=== PATIENT | male | born 1950 | race African-American/Black ===

== ENCOUNTER 2019-10-20 16:10 | Inpatient (IN) | payer MEDICARE, BC ==
[~2019-10-20] VITALS: Ht 182.9 cm; Wt 54.4 kg
[~2019-10-20 16:10] MED LIST: CARB1TAB11 MT; CLON0.1T PO; FERR325T6 MT; LISI-186 MT; POTA20TA82 MT; QUET25TA MT; RASA0.5T PO
[2019-10-20] MEDS ORDERED: SODIUM CHLORIDE 0.9% 1,000 ML IV ONE (17:04)
[2019-10-20] MEDS ORDERED: MAGNESIUM CITRATE 300ML SOLUTION PO ONE (17:15)
[2019-10-20] MEDS ORDERED: LACTULOSE 20G/30ML UDC PO ONE (17:15)
[2019-10-20] MEDS ORDERED: SODIUM POLYSTYRENE SULFONATE 15 G/60 ML BOT PO ONE (17:15)
[2019-10-20 17:56] LABS: HEMATOCRIT. 29.6 % (42.0-52.0); HEMOGLOBIN. 9.9 g/dL (14.0-18.0); MEAN CORPUSCULAR HEMOGLOBIN 29.4 pg (28.0-32.0); MEAN CORPUSCULAR VOLUME 87.6 fL (80.0-94.0); PLATELET 290 x1000/uL (130-400); RED BLOOD CELL COUNT 3.38 mill/uL (4.7-6.1); RED CELL DISTRIBUTION WIDTH 17.3 % (11.6-14.6)
[2019-10-20 18:01] LABS: CHLORIDE 106 mEq/L (98-107); PROTHROMBIN TIME 10.8 sec (9.6-11.0)
[2019-10-20 18:27] LABS: PLATELET ESTIMATE NORMAL
[2019-10-20 19:29] LABS: CLARITY URINE CLEAR (CLEAR); COLOR URINE YELLOW (YELLOW); KETONES URINE NEGATIVE (NEGATIVE); LEUKOCYTE ESTERASE URINE NEGATIVE (NEGATIVE); NITRITE URINE NEGATIVE (NEGATIVE); OCCULT BLOOD URINE TRACE (NEGATIVE); PH URINE 6.5 (4.5-8.0); PROTEIN URINE TRACE (NEGATIVE); SPECIFIC GRAVITY URINE 1.016 (1.005-1.030); UROBILINOGEN URINE 0.2 E.U./dL (0.2-1.0)
[2019-10-20] MEDS ORDERED: LACTULOSE 20G/30ML UDC PO PRN (20:45)
[2019-10-20] MEDS ORDERED: HYDROCODONE/ACETAMINOPHEN 5/325MG TABLET PO PRN (20:45)
[2019-10-20] MEDS ORDERED: ACETAMINOPHEN 650MG/20.3ML UDC GT PRN (20:45)
[2019-10-20] MEDS ORDERED: DOCUSATE SODIUM 100MG CAPSULE PO PRN (20:45)
[2019-10-20] MEDS ORDERED: ONDANSETRON HCL 4MG/2ML INJ IV PRN (20:45)
[2019-10-20] MEDS ORDERED: NA PHOS,M-B/NA PHOS,DI-BA ENEMA 118ML PR PRN (21:00)
[2019-10-20] MEDS: CARBIDOPA/LEVODOPA 25/100MG TABLET PO SCH (22:00)
[2019-10-20 22:33] VITALS: BP 139/89
[2019-10-20 23:00] VITALS: BP 139/89
[2019-10-20] MEDS: PANTOPRAZOLE SODIUM 40 MG/VIAL IV SCH (23:35)
[2019-10-20] MEDS: ENOXAPARIN 40MG/0.4ML SYR SUBCUT SCH (23:36)
[2019-10-21] VITALS (8 sets, daily range): BP systolic 151–177; BP diastolic 77–95
[2019-10-21] MEDS: DEXT 5%/0.45% NACL 1000ML 1,000 ML IV SCH ×3 (02:40→21:53)
[2019-10-21] MEDS: CARBIDOPA/LEVODOPA 25/100MG TABLET PO SCH ×3 (06:00→21:26)
[2019-10-21 07:26] LABS: CHLORIDE 111 mEq/L (98-107)
[2019-10-21 08:38] LABS: HEMATOCRIT. 28.2 % (42.0-52.0); HEMOGLOBIN. 9.5 g/dL (14.0-18.0); MEAN CORPUSCULAR HEMOGLOBIN 29.8 pg (28.0-32.0); MEAN CORPUSCULAR VOLUME 88.1 fL (80.0-94.0); PLATELET 282 x1000/uL (130-400); RED CELL DISTRIBUTION WIDTH 17.3 % (11.6-14.6)
[2019-10-21] MEDS: PANTOPRAZOLE SODIUM 40 MG/VIAL IV SCH (09:18)
[2019-10-21 11:20] LABS: PLATELET ESTIMATE NORMAL
[2019-10-21] MEDS: CLONIDINE 0.1MG TABLET PO PRN ×2 (12:12→21:26)
[2019-10-21] MEDS: BISACODYL 10MG SUPP PR SCH (14:21)
[2019-10-21] MEDS: METOCLOPRAMIDE HCL 10MG/2ML VIAL IV SCH (18:03)
[2019-10-21] MEDS: ENOXAPARIN 40MG/0.4ML SYR SUBCUT SCH (21:26)
[2019-10-22] VITALS: BP 110/71
[2019-10-22] MEDS: METOCLOPRAMIDE HCL 10MG/2ML VIAL IV SCH ×4 (00:29→18:41)
[2019-10-22 04:00] VITALS: BP 164/90
[2019-10-22] MEDS: CLONIDINE 0.1MG TABLET PO PRN (05:40)
[2019-10-22] MEDS: CARBIDOPA/LEVODOPA 25/100MG TABLET PO SCH ×3 (05:41→22:14)
[2019-10-22 06:17] VITALS: BP 146/82
[2019-10-22 08:00] VITALS: BP 119/66
[2019-10-22] MEDS: PANTOPRAZOLE SODIUM 40 MG/VIAL IV SCH (09:22)
[2019-10-22] MEDS: BISACODYL 10MG SUPP PR SCH (09:34)
[2019-10-22] MEDS ORDERED: SORBITOL 70% SOLN 30ML PO NR (11:00)
[2019-10-22 12:00] VITALS: BP 122/57
[2019-10-22 16:00] VITALS: BP 130/60
[2019-10-22] MEDS: ENOXAPARIN 30MG/0.3ML SYR SUBCUT SCH (22:14)
[2019-10-22] MEDS: DEXT 5%/0.45% NACL 1000ML 1,000 ML IV SCH (22:14)
[2019-10-23] VITALS: BP 136/78
[2019-10-23] MEDS: METOCLOPRAMIDE HCL 10MG/2ML VIAL IV SCH ×5 (00:41→23:58)
[2019-10-23 04:00] VITALS: BP 183/101
[2019-10-23] MEDS: CARBIDOPA/LEVODOPA 25/100MG TABLET PO SCH ×3 (05:45→22:25)
[2019-10-23 06:36] LABS: HEMATOCRIT. 31.9 % (42.0-52.0); HEMOGLOBIN. 10.6 g/dL (14.0-18.0); MEAN CORPUSCULAR HEMOGLOBIN 29.2 pg (28.0-32.0); MEAN CORPUSCULAR VOLUME 87.9 fL (80.0-94.0); MEAN PLATELET VOLUME 8.2 fl (7.4-10.4); PLATELET 307 x1000/uL (130-400); RED BLOOD CELL COUNT 3.63 mill/uL (4.7-6.1); RED CELL DISTRIBUTION WIDTH 16.8 % (11.6-14.6)
[2019-10-23 06:53] LABS: CHLORIDE 105 mEq/L (98-107)
[2019-10-23 08:00] VITALS: BP 152/83
[2019-10-23] MEDS: PANTOPRAZOLE SODIUM 40 MG/VIAL IV SCH (08:24)
[2019-10-23] MEDS: BISACODYL 10MG SUPP PR SCH (08:25)
[2019-10-23] MEDS: DEXT 5%/0.45% NACL 1000ML 1,000 ML IV SCH (11:22)
[2019-10-23 12:00] VITALS: BP 110/90
[2019-10-23 13:59] LABS: PLATELET ESTIMATE NORMAL
[2019-10-23 16:00] VITALS: BP 118/74
[2019-10-23] MEDS ORDERED: POTASSIUM CHLORIDE INJ 40 MEQ in DEXT 5% WATER 500 ML IV NR (18:00)
[2019-10-23 20:00] VITALS: BP 139/87
[2019-10-23] MEDS: ENOXAPARIN 30MG/0.3ML SYR SUBCUT SCH (22:25)
[2019-10-24] VITALS: BP 146/84
[2019-10-24 04:00] VITALS: BP_SYST 142
[2019-10-24] MEDS: METOCLOPRAMIDE HCL 10MG/2ML VIAL IV SCH ×3 (05:44→17:58)
[2019-10-24] MEDS: CARBIDOPA/LEVODOPA 25/100MG TABLET PO SCH ×2 (05:44→16:57)
[2019-10-24 08:00] VITALS: BP 144/82
[2019-10-24] MEDS: PANTOPRAZOLE SODIUM 40 MG/VIAL IV SCH (08:21)
[2019-10-24] MEDS ORDERED: THIAMINE HCL 100MG TABLET PO SCH (09:00)
[2019-10-24] MEDS ORDERED: FOLIC ACID 1MG TABLET PO SCH (09:00)
[2019-10-24] MEDS: DEXT 5%/0.45% NACL 1000ML 1,000 ML IV SCH (09:53)
[2019-10-24] MEDS: BISACODYL 10MG SUPP PR SCH (09:55)
[2019-10-24 12:00] VITALS: BP 148/95
[2019-10-24 12:23] VITALS: BP 144/82
[2019-10-24 16:00] VITALS: BP 165/89
[2019-10-24] MEDS: CLONIDINE 0.1MG TABLET PO PRN (16:57)
== END 2019-10-24 20:57 | disposition home or self-care (01) | DRG 394 ==
LOC: EDBD → ER 16:10 → EDBEDREQ 17:08 → 6EST 19:19 → EDBEDREQTM 19:23 → EDBEDREQSVC 19:23 → EDBEDREQ 19:23 → ENRESERV 20:09 → 6EST 22:29 → 7WST 23:41 → 6EST 23:57 → 7WST 23:59
PROVIDERS: ADMIT Hospitalist; ATTEND Hospitalist
DX: K62.89 Other specified diseases of anus and rectum (principal); K56.7 Ileus, unspecified; E44.0 Moderate protein-calorie malnutrition; Z68.1 Body mass index [BMI] 19.9 or less, adult; K56.41 Fecal impaction; D50.9 Iron deficiency anemia, unspecified; E88.09 Other disorders of plasma-protein metabolism, not elsewhere classified; G20 Parkinson's disease; K63.89 Other specified diseases of intestine; I10 Essential (primary) hypertension; R13.10 Dysphagia, unspecified; Z79.899 Other long term (current) drug therapy; Z86.73 Personal history of transient ischemic attack (TIA), and cerebral infarction without residual deficits; Z93.1 Gastrostomy status
CPT/HCPCS: 36415; 71045; 74018; 74176; 80053; 81003; 85025; 92610; 93970; 96365; 96375; 99285; C9113; J1650; J2765; J3480; J7030; J7060; A4315

== ENCOUNTER 2019-10-25 21:04 | Emergency (ER) | payer BC, MEDICARE ==
[~2019-10-25] VITALS: Ht 172.7 cm; Wt 75.0 kg
[2019-10-25] MEDS ORDERED: SODIUM CHLORIDE 0.9% 1,000 ML IV ONE (21:49)
[2019-10-25 22:49] LABS: HEMATOCRIT. 27.5 % (42.0-52.0); HEMOGLOBIN. 9.9 g/dL (14.0-18.0); MEAN CORPUSCULAR HEMOGLOBIN 30.7 pg (28.0-32.0); MEAN CORPUSCULAR VOLUME 85.6 fL (80.0-94.0); MEAN PLATELET VOLUME 7.9 fl (7.4-10.4); PLATELET 263 x1000/uL (130-400); RED BLOOD CELL COUNT 3.21 mill/uL (4.7-6.1); RED CELL DISTRIBUTION WIDTH 16.7 % (11.6-14.6)
[2019-10-25 22:56] LABS: CHLORIDE 104 mEq/L (98-107)
[2019-10-25 23:00] LABS: CLARITY URINE CLEAR (CLEAR); COLOR URINE YELLOW (YELLOW); KETONES URINE NEGATIVE (NEGATIVE); LEUKOCYTE ESTERASE URINE NEGATIVE (NEGATIVE); NITRITE URINE NEGATIVE (NEGATIVE); OCCULT BLOOD URINE 1+ (NEGATIVE); PROTEIN URINE NEGATIVE (NEGATIVE); SPECIFIC GRAVITY URINE 1.013 (1.005-1.030)
[2019-10-25 23:07] LABS: PLATELET ESTIMATE NORMAL
[2019-10-26] MEDS ORDERED: METOPROLOL TARTRATE 25MG TABLET PO ONE (06:45)
[2019-10-26] MEDS ORDERED: LISINOPRIL 5MG TABLET PO ONE (06:45)
[2019-10-26 10:10] VITALS: BP 177/82
[2019-10-27] MEDS ORDERED: BISA10SU62 RC (15:03)
[2019-10-27] MEDS ORDERED: METO-293 MT (15:03)
== END 2019-10-26 10:21 | disposition home or self-care (01) ==
LOC: EDBD → ER 21:04
DX: S30.813A Abrasion of scrotum and testes, initial encounter (principal); R31.9 Hematuria, unspecified; I10 Essential (primary) hypertension; G20 Parkinson's disease; Z86.73 Personal history of transient ischemic attack (TIA), and cerebral infarction without residual deficits; Z79.899 Other long term (current) drug therapy; X58.XXXA Exposure to other specified factors, initial encounter; Y93.89 Activity, other specified; Y92.89 Other specified places as the place of occurrence of the external cause; Y99.8 Other external cause status
CPT/HCPCS: 36415; 80053; 81003; 85025; 99283; J7030

== ENCOUNTER 2019-10-27 06:46 | Inpatient (IN) | payer BC, MEDICARE ==
[~2019-10-27] VITALS: Ht 182.9 cm; Wt 47.9 kg
[2019-10-27] MEDS ORDERED: KETOROLAC 30MG/ML VIAL IV STA (07:05)
[2019-10-27 08:43] LABS: CHLORIDE 106 mEq/L (98-107); INR 1.1; PROTHROMBIN TIME 11.3 sec (9.6-11.0)
[2019-10-27 08:45] LABS: HEMATOCRIT. 32.6 % (42.0-52.0); HEMOGLOBIN. 10.7 g/dL (14.0-18.0); MEAN CORPUSCULAR HEMOGLOBIN 28.5 pg (28.0-32.0); MEAN CORPUSCULAR VOLUME 86.7 fL (80.0-94.0); MEAN PLATELET VOLUME 7.8 fl (7.4-10.4); PLATELET 260 x1000/uL (130-400); RED BLOOD CELL COUNT 3.76 mill/uL (4.7-6.1); RED CELL DISTRIBUTION WIDTH 16.3 % (11.6-14.6)
[2019-10-27] MEDS ORDERED: HYDRALAZINE 20MG/ML VIAL IV ONE (08:45)
[2019-10-27 09:41] LABS: PLATELET ESTIMATE NORMAL
[2019-10-27 09:55] LABS: CLARITY URINE CLEAR (CLEAR); KETONES URINE NEGATIVE (NEGATIVE); LEUKOCYTE ESTERASE URINE NEGATIVE (NEGATIVE); NITRITE URINE NEGATIVE (NEGATIVE); OCCULT BLOOD URINE TRACE (NEGATIVE); PROTEIN URINE NEGATIVE (NEGATIVE); SPECIFIC GRAVITY URINE 1.006 (1.005-1.030)
[2019-10-27 09:57] LABS: COLOR URINE PALE YELLOW (YELLOW)
[2019-10-27] MEDS ORDERED: LEVOFLOXACIN 750MG PREMIX 150 ML IV ONE (11:00)
[2019-10-27] MEDS ORDERED: METRONIDAZOLE 500 MG PREMIX 100 ML IV ONE (11:00)
[2019-10-27] MEDS ORDERED: CLONIDINE 0.1MG TABLET PO PRN (12:15)
[2019-10-27] MEDS ORDERED: ONDANSETRON HCL 4MG/2ML INJ IV PRN (12:15)
[2019-10-27] MEDS ORDERED: HYDROMORPHONE HCL/PF 2MG/ML CPJ IV PRN (12:15)
[2019-10-27] MEDS ORDERED: ACETAMINOPHEN 650MG/20.3ML UDC GT PRN (12:15)
[2019-10-27] MEDS ORDERED: LACTULOSE 20G/30ML UDC PO PRN (12:30)
[2019-10-27] MEDS ORDERED: POTASSIUM CHLORIDE 20MEQ TABLET SR PO NR (12:30)
[2019-10-27] MEDS ORDERED: BISACODYL 10MG SUPP PR PRN (12:30)
[2019-10-27 14:00] VITALS: BP 121/67
[2019-10-27] MEDS ORDERED: METRONIDAZOLE 500 MG PREMIX 100 ML IV SCH (14:00)
[2019-10-27 14:37] VITALS: BP 121/67
[2019-10-27] MEDS ORDERED: BISA10SU62 RC (15:03)
[2019-10-27] MEDS ORDERED: METO-293 MT (15:03)
[2019-10-27] MEDS ORDERED: POTASSIUM CHLORIDE 20MEQ/PACKET GT NR (15:30)
[2019-10-27 16:00] VITALS: BP 136/88
[2019-10-27] MEDS ORDERED: LEVOFLOXACIN 500MG PREMIX 100 ML IV SCH (16:00)
[2019-10-27] MEDS ORDERED: DOCUSATE SODIUM 100MG CAPSULE PO SCH (17:00)
[2019-10-27] MEDS: METRONIDAZOLE 500 MG PREMIX 100 ML IV SCH (17:16)
[2019-10-27] MEDS: DOCUSATE SODIUM SUGAR FREE 100MG/10ML UDC NG SCH (17:16)
[2019-10-27] MEDS: CARBIDOPA/LEVODOPA 10/100MG TABLET PO SCH ×2 (17:17→21:46)
[2019-10-27] MEDS: METOCLOPRAMIDE HCL 5MG TABLET PO SCH ×2 (17:17→21:45)
[2019-10-27] MEDS: SODIUM CHLORIDE 0.9% 1,000 ML IV SCH (17:18)
[2019-10-27] MEDS: LISINOPRIL 10MG TABLET PO SCH (17:20)
[2019-10-27 20:45] VITALS: BP 93/63
[2019-10-27] MEDS ORDERED: QUETIAPINE FUMARATE 25MG TABLET PO SCH (21:00)
[2019-10-28] VITALS: BP 91/50
[2019-10-28] MEDS: METRONIDAZOLE 500 MG PREMIX 100 ML IV SCH ×2 (00:51→09:12)
[2019-10-28 04:00] VITALS: BP 129/79
[2019-10-28] MEDS: SODIUM CHLORIDE 0.9% 1,000 ML IV SCH (06:42)
[2019-10-28] MEDS: CARBIDOPA/LEVODOPA 10/100MG TABLET PO SCH (06:44)
[2019-10-28 07:22] LABS: HEMOGLOBIN. 8.9 g/dL (14.0-18.0); MEAN CORPUSCULAR HEMOGLOBIN 29.6 pg (28.0-32.0); MEAN CORPUSCULAR VOLUME 86.1 fL (80.0-94.0); MEAN PLATELET VOLUME 8.1 fl (7.4-10.4); PLATELET 217 x1000/uL (130-400); RED BLOOD CELL COUNT 3.02 mill/uL (4.7-6.1); RED CELL DISTRIBUTION WIDTH 16.4 % (11.6-14.6)
[2019-10-28 07:34] LABS: CHLORIDE 110 mEq/L (98-107)
[2019-10-28 08:00] VITALS: BP 131/80
[2019-10-28] MEDS: METOCLOPRAMIDE HCL 5MG TABLET PO SCH ×2 (09:13→12:28)
[2019-10-28] MEDS: LISINOPRIL 10MG TABLET PO SCH (09:13)
[2019-10-28] MEDS: DOCUSATE SODIUM SUGAR FREE 100MG/10ML UDC NG SCH (09:13)
[2019-10-28 11:38] LABS: PLATELET ESTIMATE NORMAL
[2019-10-28 12:00] VITALS: BP 158/91
[2019-10-28] MEDS ORDERED: LEVOFLOXACIN 500MG PREMIX 100 ML IV SCH (12:00)
[2019-10-28 14:26] VITALS: BP 158/91
== END 2019-10-28 15:30 | disposition home or self-care (01) | DRG 393 ==
LOC: ER 06:46 → 6WST 08:58 → CANRESERV 11:48 → ENRESERV 11:48
PROVIDERS: ADMIT Hospitalist; ATTEND Hospitalist
DX: K62.89 Other specified diseases of anus and rectum (principal); E43 Unspecified severe protein-calorie malnutrition; D62 Acute posthemorrhagic anemia; I69.354 Hemiplegia and hemiparesis following cerebral infarction affecting left non-dominant side; Z68.1 Body mass index [BMI] 19.9 or less, adult; R31.9 Hematuria, unspecified; G20 Parkinson's disease; I10 Essential (primary) hypertension; Z91.018 Allergy to other foods; Z93.1 Gastrostomy status
CPT/HCPCS: 36415; 74176; 80053; 81003; 85025; 96365; 96375; 99285; J0360; J1885; J1956; J3490; J8597

== ENCOUNTER 2019-11-14 16:27 | Inpatient (IN) | payer BC, MEDICARE ==
[~2019-11-14] VITALS: Ht 182.9 cm; Wt 74.8 kg
[~2019-11-14 16:27] MED LIST changes: +BISA10SU62 RC; -FERR325T6 MT; +METO-293 MT
[2019-11-14] MEDS ORDERED: SODIUM CHLORIDE 0.9% 500 ML IV ONE (19:39)
[2019-11-14] MEDS ORDERED: LEVOFLOXACIN 750MG PREMIX 150 ML IV ONE (19:45)
[2019-11-14 20:15] LABS: CHLORIDE 104 mEq/L (98-107)
[2019-11-14 20:20] LABS: HEMATOCRIT. 29.5 % (42.0-52.0); MEAN CORPUSCULAR HEMOGLOBIN 28.1 pg (28.0-32.0); MEAN CORPUSCULAR VOLUME 83.4 fL (80.0-94.0); MEAN PLATELET VOLUME 8.2 fl (7.4-10.4); PLATELET 310 x1000/uL (130-400); RED BLOOD CELL COUNT 3.54 mill/uL (4.7-6.1); RED CELL DISTRIBUTION WIDTH 16.3 % (11.6-14.6)
[2019-11-14 20:59] LABS: PLATELET ESTIMATE NORMAL
[2019-11-15] VITALS (7 sets, daily range): BP systolic 106–183; BP diastolic 43–97
[2019-11-15] MEDS: ACETYLCYSTEINE 100MG/ML 10% VIAL 4ML INH SCH (01:22)
[2019-11-15] MEDS ORDERED: CLONIDINE 0.1MG TABLET PO PRN (05:45)
[2019-11-15] MEDS ORDERED: LISINOPRIL 5MG TABLET PO SCH (09:00)
[2019-11-15] MEDS ORDERED: IPRATROPIUM/ALBUTEROL 0.5-3(2.5)MG/3ML NEB HHN PRN (09:00)
[2019-11-15] MEDS ORDERED: ONDANSETRON HCL 4MG/2ML INJ IV PRN (09:00)
[2019-11-15] MEDS ORDERED: ACETAMINOPHEN 325MG TABLET PO PRN (09:00)
[2019-11-15] MEDS ORDERED: RASAGILINE MESYLATE 1 MG PO SCH (09:00)
[2019-11-15] MEDS: CARBIDOPA/LEVODOPA 25/250MG TABLET GT SCH ×3 (09:44→17:55)
[2019-11-15] MEDS: METOCLOPRAMIDE HCL 10MG TABLET PO SCH ×3 (09:44→17:00)
[2019-11-15] MEDS: ENOXAPARIN 40MG/0.4ML SYR SUBCUT SCH (09:45)
[2019-11-15] MEDS: LISINOPRIL 40MG TABLET PO SCH (09:45)
[2019-11-15] MEDS ORDERED: RASAGILINE MESYLATE 0.5 MG PO SCH (11:00)
[2019-11-15] MEDS: METRONIDAZOLE 500 MG PREMIX 100 ML IV SCH ×2 (12:05→19:00)
[2019-11-15] MEDS: CEFEPIME 1,000 MG in DEXTROSE 5% WATER 50 ML IV SCH ×2 (12:05→22:49)
[2019-11-15] MEDS: QUETIAPINE FUMARATE 25MG TABLET PO SCH (20:32)
[2019-11-15] MEDS: IPRATROPIUM/ALBUTEROL 0.5-3(2.5)MG/3ML NEB HHN SCH (21:10)
[2019-11-16] VITALS: BP 144/83
[2019-11-16] MEDS ORDERED: LORAZEPAM 2MG/ML CPJ IV PRN
[2019-11-16] MEDS: IPRATROPIUM/ALBUTEROL 0.5-3(2.5)MG/3ML NEB HHN SCH ×5 (01:22→15:49)
[2019-11-16] MEDS: METRONIDAZOLE 500 MG PREMIX 100 ML IV SCH ×3 (02:27→18:27)
[2019-11-16 04:00] VITALS: BP 115/69
[2019-11-16 06:44] LABS: HEMATOCRIT. 29.1 % (42.0-52.0); HEMOGLOBIN. 9.9 g/dL (14.0-18.0); MEAN CORPUSCULAR VOLUME 82.4 fL (80.0-94.0); MEAN PLATELET VOLUME 7.7 fl (7.4-10.4); PLATELET 275 x1000/uL (130-400); RED BLOOD CELL COUNT 3.53 mill/uL (4.7-6.1); RED CELL DISTRIBUTION WIDTH 15.8 % (11.6-14.6)
[2019-11-16 06:48] LABS: CHLORIDE 105 mEq/L (98-107)
[2019-11-16] MEDS: ACETYLCYSTEINE 100MG/ML 10% VIAL 4ML INH SCH ×2 (07:37→15:49)
[2019-11-16 08:00] VITALS: BP 168/88
[2019-11-16] MEDS: METOCLOPRAMIDE HCL 10MG TABLET PO SCH (09:00)
[2019-11-16] MEDS: LISINOPRIL 40MG TABLET PO SCH (09:13)
[2019-11-16] MEDS: ENOXAPARIN 40MG/0.4ML SYR SUBCUT SCH (09:13)
[2019-11-16] MEDS: CARBIDOPA/LEVODOPA 25/250MG TABLET GT SCH ×3 (09:13→17:00)
[2019-11-16] MEDS: CEFEPIME 1,000 MG in DEXTROSE 5% WATER 50 ML IV SCH ×2 (10:05→22:27)
[2019-11-16] MEDS ORDERED: BENZONATATE 100MG CAPSULE PO PRN (11:45)
[2019-11-16 12:00] VITALS: BP 104/67
[2019-11-16 13:59] LABS: PLATELET ESTIMATE NORMAL
[2019-11-16 16:00] VITALS: BP 138/84
[2019-11-16 20:00] VITALS: BP 144/85
[2019-11-16] MEDS: QUETIAPINE FUMARATE 25MG TABLET PO SCH (22:20)
[2019-11-17] VITALS (7 sets, daily range): BP systolic 88–181; BP diastolic 55–107
[2019-11-17] MEDS: METRONIDAZOLE 500MG TABLET PO SCH ×3 (00:17→13:49)
[2019-11-17] MEDS: CARBIDOPA/LEVODOPA 25/250MG TABLET GT SCH ×3 (08:59→16:52)
[2019-11-17] MEDS: LISINOPRIL 40MG TABLET PO SCH (08:59)
[2019-11-17] MEDS: ENOXAPARIN 40MG/0.4ML SYR SUBCUT SCH (09:16)
[2019-11-17] MEDS: CEFEPIME 1,000 MG in DEXTROSE 5% WATER 50 ML IV SCH (10:01)
[2019-11-17] MEDS: IPRATROPIUM/ALBUTEROL 0.5-3(2.5)MG/3ML NEB HHN SCH ×4 (10:13→20:14)
[2019-11-17] MEDS ORDERED: BISACODYL 10MG SUPP PR PRN (16:00)
[2019-11-17 22:11] LABS: CLARITY URINE CLEAR (CLEAR); COLOR URINE YELLOW (YELLOW); KETONES URINE NEGATIVE (NEGATIVE); LEUKOCYTE ESTERASE URINE NEGATIVE (NEGATIVE); NITRITE URINE NEGATIVE (NEGATIVE); OCCULT BLOOD URINE NEGATIVE (NEGATIVE); PROTEIN URINE 1+ (NEGATIVE); SPECIFIC GRAVITY URINE 1.014 (1.005-1.030); UROBILINOGEN URINE 0.2 E.U./dL (0.2-1.0)
== END 2019-11-17 20:32 | disposition home or self-care (01) | DRG 177 ==
LOC: ER 16:27 → 6EST 23:00 → ENRESERV 23:40
PROVIDERS: ADMIT Internal Medicine; ATTEND Internal Medicine
DX: J69.0 Pneumonitis due to inhalation of food and vomit (principal); J96.00 Acute respiratory failure, unspecified whether with hypoxia or hypercapnia; E44.0 Moderate protein-calorie malnutrition; J98.11 Atelectasis; K40.90 Unilateral inguinal hernia, without obstruction or gangrene, not specified as recurrent; D64.9 Anemia, unspecified; I10 Essential (primary) hypertension; G20 Parkinson's disease; Z86.73 Personal history of transient ischemic attack (TIA), and cerebral infarction without residual deficits; Z93.1 Gastrostomy status; Z91.018 Allergy to other foods; Z68.22 Body mass index [BMI] 22.0-22.9, adult
CPT/HCPCS: 36415; 71045; 80048; 80053; 81003; 85025; 92610; 94640; 96365; 99285; J0692; J1650; J1956; J2060; J3490; J7030; J7060; J7608; J8597

== ENCOUNTER 2020-10-12 12:34 | Emergency (ER) | payer BC, MEDICARE ==
[~2020-10-12] VITALS: Ht 182.9 cm; Wt 75.0 kg
[~2020-10-12 12:34] MED LIST changes: -METO-293 MT; +METO25TA6 PO; +OMEP40CA12 PO
[2020-10-12] MEDS ORDERED: LIPASE/PROTEASE/AMYLASE 4,200/14,200/24,600 UNITS CAP DR GT ONE ×2 (13:15)
[2020-10-12 17:57] VITALS: BP 135/83
== END 2020-10-12 19:15 | disposition home or self-care (01) ==
LOC: ER 12:38
DX: K94.23 Gastrostomy malfunction (principal); I10 Essential (primary) hypertension; Z98.890 Other specified postprocedural states; Z79.899 Other long term (current) drug therapy
CPT/HCPCS: 93005; 99283

== ENCOUNTER 2020-11-20 08:44 | Inpatient (IN) | payer BC, MEDICARE ==
[~2020-11-20] VITALS: Ht 162.6 cm; Wt 51.9 kg
[2020-11-20] MEDS ORDERED: SODIUM CHLORIDE 0.9% 1,000 ML IV ONE (09:00)
[2020-11-20 09:24] LABS: BASOPHILS % 0.2 % (0.0-2.0); EOSINOPHILS % 0.3 % (0.0-5.0); HEMATOCRIT. 24.7 % (42.0-52.0); HEMOGLOBIN. 8.3 g/dL (14.0-18.0); MEAN CORPUSCULAR HEMOGLOBIN 30.3 pg (28.0-32.0); MEAN CORPUSCULAR VOLUME 90.5 fL (80.0-94.0); MEAN PLATELET VOLUME 10.1 fl (7.4-10.4); MONOCYTES % 12.4 % (2.0-8.0); NEUTROPHILS % 74.1 % (40.0-76.0); PLATELET 155 x1000/uL (130-400); RED BLOOD CELL COUNT 2.73 mill/uL (4.7-6.1); RED CELL DISTRIBUTION WIDTH 15.4 % (11.6-14.6)
[2020-11-20 09:27] LABS: INR 1.1
[2020-11-20 09:43] LABS: CHLORIDE 116 mEq/L (98-107)
[2020-11-20 09:48] LABS: ETHANOL BLOOD < 10 mg/dL
[2020-11-20 10:08] LABS: CLARITY URINE CLEAR (CLEAR); COLOR URINE YELLOW (YELLOW); KETONES URINE NEGATIVE (NEGATIVE); LEUKOCYTE ESTERASE URINE TRACE (NEGATIVE); NITRITE URINE NEGATIVE (NEGATIVE); OCCULT BLOOD URINE 1+ (NEGATIVE); PH URINE 5.5 (4.5-8.0); PROTEIN URINE 1+ (NEGATIVE); SPECIFIC GRAVITY URINE 1.017 (1.005-1.030); UROBILINOGEN URINE 0.2 E.U./dL (0.2-1.0)
[2020-11-20 10:40] LABS: CANNABINOID URINE SCREEN NEGATIVE (NEGATIVE)
[2020-11-20 10:41] LABS: *BARBITURATES SCREEN URINE NEGATIVE (NEGATIVE); *BENZODIAZEPINES SCREEN URINE NEGATIVE (NEGATIVE); *COCAINE SCREEN URINE NEGATIVE (NEGATIVE); METHADONE URINE SCREEN NEGATIVE (NEGATIVE); OPIATES URINE SCREEN NEGATIVE (NEGATIVE); PHENCYCLIDINE URINE SCREEN NEGATIVE (NEGATIVE)
[2020-11-20 10:42] LABS: *AMPHETAMINES SCREEN URINE NEGATIVE (NEGATIVE)
[2020-11-20] MEDS ORDERED: KETOROLAC 15MG/ML VIAL IV PRN (11:15)
[2020-11-20] MEDS ORDERED: ONDANSETRON HCL 4MG/2ML INJ IV PRN (11:15)
[2020-11-20] MEDS ORDERED: ACETAMINOPHEN 650MG/20.3ML UDC GT PRN ×2 (11:15)
[2020-11-20] MEDS ORDERED: GUAIFENESIN 200MG/10ML SUGAR FREE UDC PO PRN (11:15)
[2020-11-20] MEDS ORDERED: NITROGLYCERIN 0.4MG TABLET SL SL PRN (11:15)
[2020-11-20] MEDS ORDERED: MAGNESIUM/ALUMINUM HYDROXIDE/SIMETHICONE 30ML UDC PO PRN (11:15)
[2020-11-20] MEDS ORDERED: DOCUSATE SODIUM 100MG CAPSULE PO PRN (11:15)
[2020-11-20] MEDS ORDERED: IPRATROPIUM/ALBUTEROL 0.5-3(2.5)MG/3ML NEB NEB PRN (11:15)
[2020-11-20] MEDS: ENOXAPARIN 40MG/0.4ML SYR SUBCUT SCH (11:45)
[2020-11-20] MEDS: CLONIDINE 0.1MG TABLET PO PRN ×2 (11:56→11:57)
[2020-11-20] MEDS ORDERED: CEFTRIAXONE 1 G PREMIX 50 ML IV SCH (12:00)
[2020-11-20] MEDS ORDERED: CARBIDOPA/LEVODOPA 25/100MG TABLET PO SCH (14:00)
[2020-11-20 16:26] VITALS: BP 148/91
[2020-11-20 16:28] VITALS: BP 148/91
[2020-11-20] MEDS: LACTULOSE 20G/30ML UDC PO SCH (17:37)
[2020-11-20 17:44] LABS: CREATINE KINASE 32 IU/L (39-308)
[2020-11-20 17:45] LABS: CREATINE KINASE MB FRACTION < 1.0 ng/mL (0.5-3.6)
[2020-11-20 20:00] VITALS: BP 113/71
[2020-11-20] MEDS ORDERED: ZOLPIDEM TARTRATE 5MG TABLET PO PRN (21:00)
[2020-11-20] MEDS: METOPROLOL TARTRATE 25MG TABLET PO SCH (21:00)
[2020-11-20] MEDS: FAMOTIDINE 20MG TABLET PO SCH (22:12)
[2020-11-20] MEDS: ASCORBIC ACID 500 MG TABLET PO SCH (22:12)
[2020-11-21] VITALS (7 sets, daily range): BP systolic 126–170; BP diastolic 80–99
[2020-11-21] MEDS: CARBIDOPA/LEVODOPA 25/100MG TABLET PO SCH ×4 (00:20→23:24)
[2020-11-21 00:36] LABS: CREATINE KINASE 30 IU/L (39-308)
[2020-11-21 00:40] LABS: CREATINE KINASE MB FRACTION < 1.0 ng/mL (0.5-3.6)
[2020-11-21] MEDS: LACTULOSE 20G/30ML UDC PO SCH ×2 (06:56→17:19)
[2020-11-21 07:21] LABS: CHLORIDE 120 mEq/L (98-107)
[2020-11-21 07:34] LABS: BASOPHILS % 0.3 % (0.0-2.0); EOSINOPHILS % 1.7 % (0.0-5.0); HEMATOCRIT. 27.5 % (42.0-52.0); HEMOGLOBIN. 9.3 g/dL (14.0-18.0); LYMPHOCYTES % 11.3 % (20.0-50.0); MEAN CORPUSCULAR HEMOGLOBIN 29.9 pg (28.0-32.0); MEAN CORPUSCULAR VOLUME 88.7 fL (80.0-94.0); MEAN PLATELET VOLUME 9.9 fl (7.4-10.4); MONOCYTES % 11.2 % (2.0-8.0); NEUTROPHILS % 75.5 % (40.0-76.0); PLATELET 178 x1000/uL (130-400); RED CELL DISTRIBUTION WIDTH 14.7 % (11.6-14.6)
[2020-11-21] MEDS: METOPROLOL TARTRATE 25MG TABLET PO SCH ×2 (08:42→21:57)
[2020-11-21] MEDS: CHOLECALCIFEROL (D3) 1000 UNIT TABLET PO SCH (08:42)
[2020-11-21] MEDS: ASCORBIC ACID 500 MG TABLET PO SCH ×2 (08:42→21:56)
[2020-11-21] MEDS: ZINC SULFATE 220 MG ( 50 ) CAPSULE PO SCH (08:42)
[2020-11-21] MEDS: FAMOTIDINE 20MG TABLET PO SCH ×2 (08:42→21:57)
[2020-11-21] MEDS: ENOXAPARIN 40MG/0.4ML SYR SUBCUT SCH (11:42)
[2020-11-21] MEDS: METOCLOPRAMIDE HCL 10MG/2ML VIAL IV SCH ×3 (11:42→23:32)
[2020-11-21] MEDS: CEFTRIAXONE 1,000 MG in DEXTROSE 5% WATER 50 ML IV SCH (14:28)
[2020-11-21] MEDS: CLONIDINE 0.1MG TABLET PO PRN (17:18)
[2020-11-22 04:00] VITALS: BP_SYST 134; BP_SYST 166; BP_DIAS 80; BP_DIAS 93
[2020-11-22] MEDS: CLONIDINE 0.1MG TABLET PO PRN (06:17)
[2020-11-22] MEDS: LACTULOSE 20G/30ML UDC PO SCH ×2 (06:17→18:31)
[2020-11-22] MEDS: CARBIDOPA/LEVODOPA 25/100MG TABLET PO SCH ×3 (06:17→21:12)
[2020-11-22] MEDS: METOCLOPRAMIDE HCL 10MG/2ML VIAL IV SCH ×4 (06:25→23:31)
[2020-11-22 08:00] VITALS: BP 150/85
[2020-11-22] MEDS: ASCORBIC ACID 500 MG TABLET PO SCH ×2 (08:31→21:11)
[2020-11-22] MEDS: ZINC SULFATE 220 MG ( 50 ) CAPSULE PO SCH (08:31)
[2020-11-22] MEDS: CHOLECALCIFEROL (D3) 1000 UNIT TABLET PO SCH (08:31)
[2020-11-22] MEDS: FAMOTIDINE 20MG TABLET PO SCH ×2 (08:32→21:12)
[2020-11-22] MEDS: METOPROLOL TARTRATE 25MG TABLET PO SCH ×2 (08:32→21:13)
[2020-11-22 11:52] VITALS: BP 158/91
[2020-11-22] MEDS: ENOXAPARIN 40MG/0.4ML SYR SUBCUT SCH (12:14)
[2020-11-22] MEDS: CEFTRIAXONE 1,000 MG in DEXTROSE 5% WATER 50 ML IV SCH (14:13)
[2020-11-22 16:00] VITALS: BP 153/89
[2020-11-22 20:00] VITALS: BP 144/89
[2020-11-23] VITALS: BP 101/65
[2020-11-23 04:00] VITALS: BP 188/99
[2020-11-23] MEDS: CLONIDINE 0.1MG TABLET PO PRN ×2 (04:22→11:59)
[2020-11-23] MEDS: LACTULOSE 20G/30ML UDC PO SCH (05:57)
[2020-11-23] MEDS: METOCLOPRAMIDE HCL 10MG/2ML VIAL IV SCH ×2 (05:57→12:24)
[2020-11-23] MEDS: CARBIDOPA/LEVODOPA 25/100MG TABLET PO SCH ×2 (05:57→14:14)
[2020-11-23 08:00] VITALS: BP 133/91
[2020-11-23] MEDS: FAMOTIDINE 20MG TABLET PO SCH (08:50)
[2020-11-23] MEDS: ZINC SULFATE 220 MG ( 50 ) CAPSULE PO SCH (08:50)
[2020-11-23] MEDS: CHOLECALCIFEROL (D3) 1000 UNIT TABLET PO SCH (08:50)
[2020-11-23] MEDS: METOPROLOL TARTRATE 25MG TABLET PO SCH (08:50)
[2020-11-23] MEDS: ASCORBIC ACID 500 MG TABLET PO SCH (08:50)
[2020-11-23 12:00] VITALS: BP 181/116
[2020-11-23] MEDS: ENOXAPARIN 40MG/0.4ML SYR SUBCUT SCH (12:23)
[2020-11-23] MEDS: CEFTRIAXONE 1,000 MG in DEXTROSE 5% WATER 50 ML IV SCH (14:13)
[2020-11-23 14:34] VITALS: BP 133/91
== END 2020-11-23 16:00 | disposition home or self-care (01) | DRG 91 ==
LOC: ER 08:44 → 5WST 10:59 → ENRESERV 15:14
PROVIDERS: ADMIT Internal Medicine; ATTEND Internal Medicine
DX: G92 Toxic encephalopathy (principal); E43 Unspecified severe protein-calorie malnutrition; D63.8 Anemia in other chronic diseases classified elsewhere; E83.51 Hypocalcemia; G20 Parkinson's disease; I10 Essential (primary) hypertension; R13.10 Dysphagia, unspecified; Z86.73 Personal history of transient ischemic attack (TIA), and cerebral infarction without residual deficits; R14.0 Abdominal distension (gaseous)
CPT/HCPCS: 36415; 71045; 80053; 80305; 80320; 81003; 82140; 82550; 82553; 82962; 83036; 83605; 83615; 83735; 84100; 84145; 84484; 85025; 85379; 93005; 93970; 99291; J0696; J1650; J1885; J2765; J7030; J7040; J7060; G0480